=== PATIENT | male | born 1970 | race Caucasian/White ===

== ENCOUNTER 2016-07-15 17:11 | Inpatient (IN) | payer MEDICAID ==
[~2016-07-15] VITALS: Ht 165.1 cm; Wt 74.0 kg
[2016-07-16] MEDS ORDERED: DIPHENHYDRAMINE 50 MG/ML VIAL IM PRN (00:35)
[2016-07-16] MEDS ORDERED: ALU/MAG/SIM 30 ML UDC PO PRN (00:35)
[2016-07-16] MEDS ORDERED: DIPHENHYDRAMINE 50 MG CAP PO PRN (00:35)
[2016-07-16] MEDS ORDERED: LORAZEPAM 2 MG/ML VIAL IM PRN (00:35)
[2016-07-16] MEDS ORDERED: LORAZEPAM 2 MG TAB PO PRN (00:35)
[2016-07-16] MEDS ORDERED: TRAZODONE 50 MG TAB PO PRN (00:35)
[2016-07-16] MEDS ORDERED: HALOPERIDOL 5 MG/ML VIAL IM PRN (00:35)
[2016-07-16] MEDS ORDERED: HALOPERIDOL 5 MG TAB PO PRN (00:35)
[2016-07-16] MEDS ORDERED: MAG HYDROX 30 ML UDC PO PRN (00:35)
[2016-07-16 03:27] VITALS: BP_SYST 98; RESP 16
[2016-07-16 03:28] VITALS: Ht 165.1 cm; Wt 74.0 kg
[2016-07-16] MEDS ORDERED: *PINK BRACELET XX ONE (07:25)
[2016-07-16] MEDS: *HOME MEDS KEPT IN PHARMACY XX SCH ×2 (08:00→20:00)
[2016-07-16 08:11] VITALS: BP_SYST 109; RESP 18; TEMP 97.8
[2016-07-16] MEDS: NICOTINE 21 MG/24 HR TRANSDERM SCH (09:16)
[2016-07-16] MEDS: MULTIVITS/MINERALS (THERAGRAN M) TAB PO SCH (09:16)
[2016-07-16] MEDS ORDERED: NEB-ALBUTEROL 2.5 MG/3 ML INH PRN (11:30)
[2016-07-16] MEDS: MONTELUKAST 10 MG TAB PO SCH (12:11)
[2016-07-16] MEDS: VENLAFAXINE XR 75 MG CAP PO SCH (12:11)
[2016-07-16] MEDS: GABAPENTIN 400 MG CAP PO SCH ×3 (12:14→21:00)
[2016-07-16] MEDS: NYSTATIN 500,000 UNITS/5 ML SUSP SWISH.SWAL SCH ×3 (12:16→21:00)
[2016-07-16] MEDS ORDERED: ALBUTEROL HFA INH PRN (14:55)
[2016-07-16 14:58] VITALS: RESP 18
[2016-07-16] MEDS: DUONEB INH PRN (14:58)
[2016-07-16] MEDS: QUETIAPINE XR 300 MG TAB PO SCH (16:47)
[2016-07-16 19:19] VITALS: BP_SYST 128; RESP 20; TEMP 97.5
[2016-07-17] MEDS: PANTOPRAZOLE 40 MG TAB PO SCH (07:07)
[2016-07-17] MEDS: *HOME MEDS KEPT IN PHARMACY XX SCH ×2 (07:56→20:00)
[2016-07-17] MEDS: VENLAFAXINE XR 75 MG CAP PO SCH (08:30)
[2016-07-17] MEDS: MONTELUKAST 10 MG TAB PO SCH (08:30)
[2016-07-17] MEDS: GABAPENTIN 400 MG CAP PO SCH ×3 (08:30→20:57)
[2016-07-17] MEDS: MULTIVITS/MINERALS (THERAGRAN M) TAB PO SCH (08:30)
[2016-07-17] MEDS: NYSTATIN 500,000 UNITS/5 ML SUSP SWISH.SWAL SCH ×4 (08:30→20:57)
[2016-07-17] MEDS: NICOTINE 21 MG/24 HR TRANSDERM SCH (08:35)
[2016-07-17 10:38] VITALS: BP_SYST 122; RESP 18; TEMP 98.6
[2016-07-17] MEDS: QUETIAPINE XR 300 MG TAB PO SCH (16:53)
[2016-07-17 19:00] VITALS: BP_SYST 110; RESP 20; TEMP 98.7
[2016-07-18] MEDS: PANTOPRAZOLE 40 MG TAB PO SCH (06:58)
[2016-07-18 07:11] VITALS: BP_SYST 111; RESP 16; TEMP 97.4
[2016-07-18] MEDS: *HOME MEDS KEPT IN PHARMACY XX SCH ×2 (07:41→20:00)
[2016-07-18] MEDS: MONTELUKAST 10 MG TAB PO SCH (09:02)
[2016-07-18] MEDS: MULTIVITS/MINERALS (THERAGRAN M) TAB PO SCH (09:02)
[2016-07-18] MEDS: NYSTATIN 500,000 UNITS/5 ML SUSP SWISH.SWAL SCH ×4 (09:02→21:04)
[2016-07-18] MEDS: GABAPENTIN 400 MG CAP PO SCH ×2 (09:02→21:04)
[2016-07-18] MEDS: VENLAFAXINE XR 75 MG CAP PO SCH (09:02)
[2016-07-18] MEDS: NICOTINE 21 MG/24 HR TRANSDERM SCH (09:09)
[2016-07-18] MEDS ORDERED: GABAPENTIN 400 MG CAP PO ONE (16:00)
[2016-07-18] MEDS: QUETIAPINE XR 300 MG TAB PO SCH (17:04)
[2016-07-18 19:00] VITALS: BP_SYST 94; RESP 16; TEMP 98.5
[2016-07-19] MEDS: PANTOPRAZOLE 40 MG TAB PO SCH (06:59)
[2016-07-19] MEDS: *HOME MEDS KEPT IN PHARMACY XX SCH ×2 (07:12→20:00)
[2016-07-19 07:16] VITALS: BP_SYST 116; RESP 18; TEMP 97.8
[2016-07-19] MEDS: GABAPENTIN 400 MG CAP PO SCH ×2 (09:07→21:01)
[2016-07-19] MEDS: NICOTINE 21 MG/24 HR TRANSDERM SCH (09:07)
[2016-07-19] MEDS: NYSTATIN 500,000 UNITS/5 ML SUSP SWISH.SWAL SCH ×4 (09:07→21:01)
[2016-07-19] MEDS: MONTELUKAST 10 MG TAB PO SCH (09:07)
[2016-07-19] MEDS: VENLAFAXINE XR 75 MG CAP PO SCH (09:07)
[2016-07-19] MEDS: MULTIVITS/MINERALS (THERAGRAN M) TAB PO SCH (09:07)
[2016-07-19] MEDS: QUETIAPINE XR 300 MG TAB PO SCH (17:43)
[2016-07-19 19:03] VITALS: BP_SYST 116; RESP 18; TEMP 97.9
[2016-07-20] MEDS: PANTOPRAZOLE 40 MG TAB PO SCH (07:10)
[2016-07-20 08:02] VITALS: BP_SYST 110; RESP 16
[2016-07-20] MEDS: MONTELUKAST 10 MG TAB PO SCH (08:48)
[2016-07-20] MEDS: VENLAFAXINE XR 75 MG CAP PO SCH (08:48)
[2016-07-20] MEDS: NYSTATIN 500,000 UNITS/5 ML SUSP SWISH.SWAL SCH ×4 (08:48→22:16)
[2016-07-20] MEDS: GABAPENTIN 400 MG CAP PO SCH ×2 (08:48→22:12)
[2016-07-20] MEDS: MULTIVITS/MINERALS (THERAGRAN M) TAB PO SCH (08:48)
[2016-07-20] MEDS: NICOTINE 21 MG/24 HR TRANSDERM SCH (08:59)
[2016-07-20] MEDS: *HOME MEDS KEPT IN PHARMACY XX SCH ×2 (09:00→19:46)
[2016-07-20] MEDS: ACETAMINOPHEN 325 MG TAB PO PRN (16:12)
[2016-07-20] MEDS: QUETIAPINE XR 300 MG TAB PO SCH (17:02)
[2016-07-20 19:07] VITALS: BP_SYST 99; RESP 18; TEMP 97.5
[2016-07-21 07:00] VITALS: BP_SYST 100; RESP 18; TEMP 98
[2016-07-21] MEDS: *HOME MEDS KEPT IN PHARMACY XX SCH ×2 (08:00→20:00)
[2016-07-21] MEDS: PANTOPRAZOLE 40 MG TAB PO SCH (08:15)
[2016-07-21] MEDS: NYSTATIN 500,000 UNITS/5 ML SUSP SWISH.SWAL SCH ×4 (09:25→21:38)
[2016-07-21] MEDS: GABAPENTIN 400 MG CAP PO SCH ×2 (09:25→21:38)
[2016-07-21] MEDS: NICOTINE 21 MG/24 HR TRANSDERM SCH (09:25)
[2016-07-21] MEDS: MULTIVITS/MINERALS (THERAGRAN M) TAB PO SCH (09:25)
[2016-07-21] MEDS: MONTELUKAST 10 MG TAB PO SCH (09:25)
[2016-07-21] MEDS: VENLAFAXINE XR 75 MG CAP PO SCH (09:25)
[2016-07-21] MEDS: ACETAMINOPHEN 325 MG TAB PO PRN ×2 (10:47→16:10)
[2016-07-21] MEDS: DUONEB INH PRN (16:03)
[2016-07-21 16:14] VITALS: BP_SYST 127; RESP 18
[2016-07-21 17:00] VITALS: BP_SYST 122; RESP 18
[2016-07-21] MEDS ORDERED: Ibuprofen 800 MG TAB PO ONE (17:00)
[2016-07-21 17:05] VITALS: BP_SYST 131
[2016-07-21] MEDS ORDERED: ONDANSETRON 4 MG TAB PO PRN (17:05)
[2016-07-21] MEDS: QUETIAPINE XR 300 MG TAB PO SCH (18:00)
[2016-07-21 20:09] VITALS: BP_SYST 110; RESP 16; TEMP 98.4
[2016-07-22] MEDS: ACETAMINOPHEN 325 MG TAB PO PRN (06:19)
[2016-07-22] MEDS: PANTOPRAZOLE 40 MG TAB PO SCH (06:19)
[2016-07-22 07:55] VITALS: BP_SYST 94; RESP 18; TEMP 98.1
[2016-07-22] MEDS: GABAPENTIN 400 MG CAP PO SCH (08:55)
[2016-07-22] MEDS: MONTELUKAST 10 MG TAB PO SCH (08:55)
[2016-07-22] MEDS: VENLAFAXINE XR 75 MG CAP PO SCH (08:55)
[2016-07-22] MEDS: MULTIVITS/MINERALS (THERAGRAN M) TAB PO SCH (08:55)
[2016-07-22] MEDS: NYSTATIN 500,000 UNITS/5 ML SUSP SWISH.SWAL SCH ×3 (08:55→16:14)
[2016-07-22] MEDS: NICOTINE 21 MG/24 HR TRANSDERM SCH (09:01)
[2016-07-22] MEDS: *HOME MEDS KEPT IN PHARMACY XX SCH (09:30)
[2016-07-22 12:57] VITALS: BP_SYST 94; RESP 18; TEMP 98.1
[2016-07-22 13:32] VITALS: BP_SYST 94; RESP 18; TEMP 98.1
[2016-07-22 13:50] VITALS: BP_SYST 94; RESP 18; TEMP 98.1
[2016-07-22 14:02] VITALS: BP_SYST 94; RESP 18; TEMP 98.1
[2016-07-22] MEDS: QUETIAPINE XR 300 MG TAB PO SCH (16:14)
== END 2016-07-22 16:30 | disposition home or self-care (01) | DRG 885 ==
LOC: ENRESERVTM → ENRESERVDT → ER 17:11 → EMR 07-16 00:21 → PSY 07-16 02:59
PROVIDERS: ADMIT Psychiatry & Neurology Psychiatry; ATTEND Psychiatry & Neurology Psychiatry
DX: F33.2 Major depressive disorder, recurrent severe without psychotic features (principal); F15.10 Other stimulant abuse, uncomplicated; J44.9 Chronic obstructive pulmonary disease, unspecified; F15.14 Other stimulant abuse with stimulant-induced mood disorder; G89.29 Other chronic pain
CPT/HCPCS: 36415; 80053; 80307; 80320; 80329; 81003; 85025; 93005; 94640; 94799